=== PATIENT | female | born 1995 | race Caucasian/White ===

== ENCOUNTER 2021-10-19 21:45 | Emergency (ER) | payer OTHER | END 2021-10-20 00:15 | disposition home or self-care (01) | LOC: FER 21:45 | DX: R09.89 Other specified symptoms and signs involving the circulatory and respiratory systems (principal); K22.4 Dyskinesia of esophagus; Z88.0 Allergy status to penicillin; Z88.2 Allergy status to sulfonamides; Z88.1 Allergy status to other antibiotic agents; Z88.8 Allergy status to other drugs, medicaments and biological substances | CPT/HCPCS: 71250 ==